=== PATIENT | female | born 1955 | race Caucasian/White ===

== ENCOUNTER 2018-05-12 21:51 | Observation (INO) | payer MEDICARE ==
[~2018-05-12] VITALS: Ht 177.8 cm; Wt 55.9 kg
--- NOTE | ~2018-05-12 | HP ---
PATIENT: RUDY GREEN MEDICAL RECORD: [id number] ACCOUNT: [id number] LOCATION:[facility].E18- : 55 ADMISSION DATE: 05/13/18 HISTORY AND PHYSICAL EXAMINATION REASON FOR ADMISSION: Depression with suicidal ideation and attempt. HISTORY OF PRESENT ILLNESS: The patient is a 62-year-old female with history of bipolar depression and hospitalization she states in January of this year at [facility] for same. She states she had been depressed recently and then using meth for about 6 months, became very distraught. She took a bottle of pills from a friend, which is not sure what they were. EMS was notified. She was brought by EMS to the [place] ED. She was arousable at that time. It was unsure how much time had passed since she had taken the medication and presented to the ED. She now states she is not wanting to kill herself. PAST MEDICAL HISTORY: Bipolar depression with suicidal gesture in the past, last hospitalized at [facility] on 01/2018. History of anxiety. PAST SURGICAL HISTORY: Cholecystectomy. HISTORY: 2. FAMILY HISTORY: Father of alcoholism. Mother is 83, has leukemia. SOCIAL HISTORY: She is not , has 2 living children and not live with her. She smokes cigarettes and has been prescribed Klonopin by Dr. Muir, her [place] physician and Seroquel to help her depression, but no one refilled it she says. CURRENT MEDICATIONS: Her Klonopin dose is unknown. She uses methamphetamines, marijuana and prescribed Klonopin. REVIEW OF SYSTEMS: GENERAL: The patient says she has had significant weight loss due to poor appetite and meth abuse. HEENT: No recent visual change, sinus congestion, sore throat or headache. RESPIRATORY: No severe cough. CARDIAC: No chest pain, claudication or edema. GASTROINTESTINAL: No nausea, vomiting, change in stools or blood per rectum. GYNECOLOGIC: No vaginal bleeding. ENDOCRINE: Denies polyuria, polydipsia, heat or cold intolerance. NEUROLOGIC: No history of stroke, TIA, or vascular headaches. INTEGUMENT: No rash or itching. PSYCHIATRIC: Admits to depressed mood, melancholy thoughts and suicidal thoughts recently. Says she was intent on killing herself when she took the bottle of Klonopin. PHYSICAL EXAMINATION: VITAL SIGNS: Her pulse is 70, respirations are 18, blood pressure 140/67 with an O2 sat of 99% on room air. GENERAL: The patient is arousable. HEENT: Her eyes are clear. Oropharynx is unremarkable except for poor dentition. Dry mucous membranes. NECK: Supple, without bruits. HISTORY AND PHYSICAL [id number] RUDY GREEN Harish CHEST: Clear. HEART: Regular without murmur. ABDOMEN: Nontender throughout. PELVIC: Deferred. EXTREMITIES: No CC&E. INTEGUMENT: No cyanosis or icterus. NEUROLOGIC: Oriented to person and place, but not time. PSYCHIATRIC: Admits to depressive symptoms for some time. Denies auditory or visual hallucinosis. LABORATORY DATA: Shows a white count of 7000, H&H of 12.8 and 38.1 respectively, platelet count 328,000. Chemistry is normal. Glucose is 93. Lactate is 1. Magnesium was low at 1.6. Cardiac enzymes are negative. Lipase is 795. Urinalysis shows trace leukocyte esterase, 0-5 white and red cells, few bacteria. Toxicology drug screen was positive for barbiturates and amphetamines. Acetaminophen level is 15. Salicylate is 4.3. ASSESSMENT: 1. Intentional drug overdose. 2. Bipolar depression with suicidal ideation and intent. 3. Weight loss. 4. Hypomagnesemia. PLAN: The patient is in the ER, currently admitted to the ICU. When bed is available, will have psychiatric consult. We will replace magnesium, banana bag. Further workup pending clinical course. TRANSINT:[id number] Voice Confirmation ID: [id number] DOCUMENT ID: [id number] ZAID MARTIN MD at [id number] CC: [id number] DICTATION DATE: 05/13/18 1313 LAB SUPPORT TECHNICIAN: 05/13/18 1336 ADM IN [facility] [address] [place] [address]
[2018-05-12 21:54] VITALS: Ht 177.8 cm; Wt 55.9 kg
[2018-05-12] MEDS ORDERED: KLONOPIN1 MG (21:56)
[2018-05-12 22:44] VITALS: BP 113/61
[2018-05-12 22:48] LABS: BASOPHILS 0.7 % (0-2); EOSINOPHILS 5.1 % (0-7); HEMATOCRIT 38.1 % (36.0-48.0); HEMOGLOBIN 12.8 g/dL (12-16); IMMATURE GRANULOCYTES 0.3 % (0-5); LYMPHOCYTES 43.6 % (15-50); MCH 31.1 pg (26.0-34.0); MCHC 33.6 g/dL (31.0-37.0); MCV 92.5 fL (80.0-100.0); MEAN PLATELET VOLUME 9.4 fL (7.4-10.4); MONOCYTES 8.7 % (2-11); NEUTROPHILS 41.6 % (40-80); PLATELET COUNT 328 10x3/uL (130-400); RBC 4.12 10x6/uL (4.00-5.40); WBC 7.4 10x3/uL (4.8-10.8)
[2018-05-12 23:11] LABS: ALBUMIN 3.5 g/dL (3.4-5.0); ALKALINE PHOSPHATASE 67 U/L (46-116); ALT (SGPT) 28 U/L (10-68); BILIRUBIN - TOTAL 0.13 mg/dL (0.2-1.3); CALC OSMOLALITY 281 mosm/kg (275-300); CALCIUM 8.4 mg/dL (8.5-10.1); CARBON DIOXIDE 29.3 mmol/L (21.0-32.0); CHLORIDE - SERUM 106 mmol/L (98-107); CREATINE KINASE 77 UL (21-215); CREATININE - SERUM 0.7 mg/dL (0.6-1.3); GLUCOSE 93 mg/dL (74-106); LIPASE 795 U/L (73-393); MAGNESIUM - SERUM 1.6 mg/dL (1.8-2.4); POTASSIUM - SERUM 3.6 mmol/L (3.5-5.1); PROTEIN - SERUM 6.7 g/dL (6.4-8.2); SODIUM 142 mmol/L (136-145); TROPONIN-I < 0.017 ng/mL (0.000-0.060); UREA NITROGEN 11 mg/dL (7-18); eGFR NON AFRICAN AMERICAN 90 mL/min (90-120)
[2018-05-12 23:22] VITALS: BP 111/67
[2018-05-13] VITALS (9 sets, daily range): BP systolic 109–148; BP diastolic 57–73
[2018-05-13 03:45] LABS: UDS - AMPHET POSITIVE QUAL (NEGATIVE); UDS - BARB POSITIVE QUAL (NEGATIVE); UDS - BENZO NEGATIVE QUAL (NEGATIVE); UDS - COCAINE NEGATIVE QUAL (NEGATIVE); UDS - OPIATE NEGATIVE QUAL (NEGATIVE); UDS - PCP NEGATIVE QUAL (NEGATIVE); UDS - THC NEGATIVE QUAL (NEGATIVE)
[2018-05-13 03:50] LABS: APPEARANCE CLEAR (CLEAR); BILIRUBIN NEGATIVE (NEGATIVE); COLOR YELLOW (YELLOW); GLUCOSE NEGATIVE (NEGATIVE); KETONE NEGATIVE (NEGATIVE); NITRITE NEGATIVE (NEGATIVE); PROTEIN NEGATIVE (NEGATIVE); SPECIFIC GRAVITY 1.015 (1.005-1.020); UROBILINOGEN NORMAL (NORMAL)
[2018-05-13 03:51] LABS: BACTERIA FEW /hpf (NONE SEEN); EPITHELIAL CELLS 0-5 /hpf (0-5); RED CELLS - URINE 0-5 /hpf (0-5); WHITE CELLS - URINE 0-5 /hpf (0-5)
[2018-05-13 22:37] LABS: BASOPHILS 0.9 % (0-2); EOSINOPHILS 5.2 % (0-7); HEMATOCRIT 40.8 % (36.0-48.0); HEMOGLOBIN 13.6 g/dL (12-16); IMMATURE GRANULOCYTES 0.1 % (0-5); LYMPHOCYTES 39.2 % (15-50); MCHC 33.3 g/dL (31.0-37.0); MCV 92.9 fL (80.0-100.0); MEAN PLATELET VOLUME 9.3 fL (7.4-10.4); MONOCYTES 8.5 % (2-11); NEUTROPHILS 46.1 % (40-80); PLATELET COUNT 298 10x3/uL (130-400); RBC 4.39 10x6/uL (4.00-5.40); RDW 14.2 % (11.5-14.5); WBC 7.6 10x3/uL (4.8-10.8)
[2018-05-13 22:52] LABS: ALBUMIN 2.9 g/dL (3.4-5.0); ALKALINE PHOSPHATASE 73 U/L (46-116); ALT (SGPT) 26 U/L (10-68); BILIRUBIN - TOTAL 0.11 mg/dL (0.2-1.3); CALC OSMOLALITY 281 mosm/kg (275-300); CALCIUM 8.2 mg/dL (8.5-10.1); CARBON DIOXIDE 33.1 mmol/L (21.0-32.0); CHLORIDE - SERUM 108 mmol/L (98-107); CREATININE - SERUM 0.6 mg/dL (0.6-1.3); GLUCOSE 97 mg/dL (74-106); PROTEIN - SERUM 6.1 g/dL (6.4-8.2); SODIUM 142 mmol/L (136-145); UREA NITROGEN 11 mg/dL (7-18); eGFR NON AFRICAN AMERICAN > 90 mL/min (90-120)
[2018-05-13 22:54] LABS: POTASSIUM - SERUM 4.2 mmol/L (3.5-5.1)
[2018-05-13 23:24] LABS: MAGNESIUM - SERUM 2.1 mg/dL (1.8-2.4)
[2018-05-14 01:50] VITALS: BP 128/70
[2018-05-14 05:05] VITALS: BP 124/71
== END 2018-05-14 05:47 | disposition home or self-care (01) ==
LOC: D.ER 21:51 → D.EDHOLD 23:03 → D.ER 23:03 → D.EDHOLD 05-13 07:57 → OBSVTIME 05-13 07:57 → D.EDHOLD 05-13 07:57
PROVIDERS: Family Medicine
DX: T50.902A Poisoning by unspecified drugs, medicaments and biological substances, intentional self-harm, initial encounter (principal); F15.10 Other stimulant abuse, uncomplicated; F31.9 Bipolar disorder, unspecified; R63.4 Abnormal weight loss; E83.42 Hypomagnesemia